=== PATIENT | female | born 1935 | race Caucasian/White ===

== ENCOUNTER 2020-12-29 07:29 | Outpatient (RCR) | payer MEDICARE, SELFPAY ==
[2020-10-19 09:00] VITALS: BMI 59.6
--- NOTE | 2020-10-25 16:27 | WPDWOUNDNOTE ---
Wound Care Note Date/Time: 10/25/20 16:27 History: patient is an 85-year-old woman who 3 weeks ago was bitten by a dog in the right lower leg. She went to the emergency room at [place] where this was sutured closed. She came to the wound clinic and appeared to have an infection. The sutures were removed and a large open wound resulted. She does take Plavix and aspirin as she has had some TIAs in the past. She is seen now in the wound clinic for chronic wound care of her right lower leg wound. She is not having really much pain with the wound. She is able to ambulate at home. She does drive a car. Previously she was bathing in a bath tub but has not been since developing this wound. Wound history: As above, result of a dog bite and patient on anti-platelet therapy. Wound has not been healing well. Wound approximation: No Wound width: 3 cm Wound length: 6 cm, proximally based flap Wound depth: 1.5 cm Drainage: serosanguineous Surrounding tissue appearance: edematous with some bruising and thin skin Tunneling: only tunneling is that a flap-like nature of the wound Percentage granulation tissue: 10-15% Treatment/Procedures: excisional debridement of small amounts of skin and subcutaneous. There was a little bit of bleeding associated with this debridement but minimal discomfort. Wound was dressed with silver gel and Nu Gauze packing. Gauze rolls and Tubigrip placed. Dressings: Patient to leave dressing dry and intact until we see her again on morning. Assessment and Plan Assessment and plan (1) Open wound of right lower leg due to dog bite: Code(s): S81.851A - Open bite, right lower leg, initial encounter; W54.0XXA - Bitten by dog, initial encounter Status: Chronic Assessment and Plan: a lot of slough and devascularized tissue in the wound. Will recheck on to see the affect of the minor debridement. Consider either continuing silver gel or possibly going to wound VAC therapy. (2) Antiplatelet or antithrombotic long-term use: Code(s): Z79.02 - half-way (current) use of antithrombotics/antiplatelets Status: Chronic Assessment and Plan: Continue aspirin and Plavix for thromboembolic prevention. Review of Systems Review of Systems: All systems reviewed & are unremarkable except as noted in HPI and below ( Wound care note) Constitutional: Constitutional: Denies chills and Denies fever(s) Exam Const: General: cooperative, healthy appearing, comfortable, no acute distress, alert and awake Nutritional Appearance: average body habitus Orientation/consciousness: patient oriented x3 Extrem: Right lower extremity: lower leg ( flap-like wound described in wound note) Details: non-pitting edema, laceration and ecchymosis; no erythema and no unusual warmth
--- NOTE | 2020-10-27 17:44 | P.PNWOUND_ITS ---
Wound Care Note Date/Time: 10/27/20 17:44 History: Dog bite with a proximally based flap, right lower leg. patient takes Plavix. Wound history: Patient seen in wound clinic 2 days ago and some debridement performed. Wound was packed with Nu Gauze and she is seen again in the wound clinic today. No new complaints or problems. Wound approximation: No Wound width: 3 cm Wound length: 4.5 cm Wound depth: 1.3 cm Drainage: serosanguineous Surrounding tissue appearance: dry, much improved. Healthy. Edema is better. Tunneling: Some at upper outer aspect of wound Percentage granulation tissue: 50%. Was maybe 10% just 2 days ago. Treatment/Procedures: No procedures. Dressings: Silver gel and packing reapplied. Continue Tubigrip. Patient will have application for wound back and hopefully place this on Saturday. I will recheck her again in 3 weeks unless problems develop in the meantime. Assessment and Plan Assessment and plan (1) Open wound of right lower leg due to dog bite: Code(s): S81.851A - Open bite, right lower leg, initial encounter; W54.0XXA - Bitten by dog, initial encounter Status: Chronic Assessment and Plan: much improved from just 2 days ago with limited debridement done then. Wound treated with Silver Gel and packing. She will packed the wound once over the and then follow up again Saturday. Hopefully wound VAC will be approved in can be applied on Saturday. After that she will be seen in the wound clinic twice a week for VAC changes. I will see her in 3 weeks unless problems develop. (2) Antiplatelet or antithrombotic long-term use: Code(s): Z79.02 - supervisor intermediates (current) use of antithrombotics/antiplatelets Status: Chronic Assessment and Plan: Continue on Plavix anti-platelet therapy. Review of Systems Review of Systems: All systems reviewed & are unremarkable except as noted in HPI and below ( Wound care note) Constitutional: Constitutional: Denies chills, Denies fever(s), Denies lethargy and Denies poor appetite Hematologic/Lymphatic: Hematologic/Lymphatic: Reports easy bleeding, Reports easy bruising and Reports other ( takes Plavix anti-platelet therapy) Exam Extrem: Right lower extremity: lower leg ( proximally based flap right lower leg, much graffiti cleaner, less slough) Details: tenderness, non-pitting edema ( less then 2 days ago.) and ecchymosis ( Improving); no erythema
--- NOTE | 2020-11-14 13:31 | WPDWOUNDNOTE ---
Wound Care Note Date/Time: 11/14/20 13:31 Patient is an 85-year-old woman who suffered a dog bite of the right lower leg. She takes Plavix. She is using silver gel dressing changes and Tubigrip to minimize edema. She reports the wound seems to be getting smaller. No new complaints or problems. Assessment and Plan Assessment and plan (1) Open wound of right lower leg due to dog bite: Code(s): S81.851A - Open bite, right lower leg, initial encounter; W54.0XXA - Bitten by dog, initial encounter Status: Chronic Assessment and Plan: Continues to heal well. Continue silver gel with daily gauze dressing. Continue Tubigrip. Recommended leg elevation to minimize chronic edema. Recheck again in wound clinic in 2 weeks. Review of Systems Review of Systems: All systems reviewed & are unremarkable except as noted in HPI and below Constitutional: Constitutional: Denies body ache(s), Denies chills, Denies fever(s), Denies headache(s) and Denies poor appetite Neurologic: Denies confusion and Denies headache(s) Exam Extrem: General: edema bilateral ( Mild bilateral edema lower extremities.) Right lower extremity: lower leg Details: tenderness, non-pitting edema Details: 1+ and other ( Wound is beefy red very superficial with minimal tracking towards posterior.); no erythema, no pitting edema and no unusual warmth
--- NOTE | 2020-11-30 16:53 | P.PNWOUND_ITS ---
Wound Care Note Date/Time: 11/28/20 11:53 History: Dog bite right lower leg Wound history: initially on wound VAC After wound debrided 10/25/2020 in the wound clinic. Wound VAC was discontinued and silver gel with Tubigrip was started in early November. Wound approximation: No Wound width: 1.2 cm Wound length: 2.2 cm Wound depth: 0.2 cm Drainage: serosanguineous, pink Surrounding tissue appearance: healthy Tunneling: undermining has collapsed and filling in Percentage granulation tissue: 100 Treatment/Procedures: none Dressings: continue silver gel dressings daily with Tubigrip to help control lower extremity edema. Recheck patient in 3 weeks. Assessment and Plan Assessment and plan (1) Open wound of right lower leg due to dog bite: Code(s): S81.851A - Open bite, right lower leg, initial encounter; W54.0XXA - Bitten by dog, initial encounter Status: Chronic Assessment and Plan: Continue silver gel and Tubigrip daily. Recheck in 3 weeks in the wound clin ic. Hopefully will be healed by then. (2) Antiplatelet or antithrombotic long-term use: Code(s): Z79.02 - USP (current) use of antithrombotics/antiplatelets Status: Chronic Review of Systems Review of Systems: All systems reviewed & are unremarkable except as noted in HPI and below ( Wound care note) Exam Extrem: Right lower extremity: edema Details: non-pitting ( trace) and lower leg ( much smaller, clean granulating beefy red wound.)
--- NOTE | 2020-12-22 15:21 | WPDWOUNDNOTE ---
Wound Care Note Date/Time: 12/22/20 15:21 no new complaints. Right leg wound getting smaller. She has been using silver gel. Just a small area remains. Assessment and Plan Assessment and plan (1) Open wound of right lower leg due to dog bite: Code(s): S81.851A - Open bite, right lower leg, initial encounter; W54.0XXA - Bitten by dog, initial encounter Status: Chronic Assessment and Plan: Almost completely healed. Treated with silver nitrate cautery today. Mepilex applied. Patient will leave this in place for the next 3 days and then cover with a Band-Aid or gauze. She will follow up in the Wound Clinic in 1 week. If has not healed by then I will see her again in a couple of weeks. Probably this will go on to heal without further issues. Review of Systems Review of Systems: All systems reviewed & are unremarkable except as noted in HPI and below Constitutional: Constitutional: Denies chills and Denies fever(s) Exam Extrem: Right lower extremity: lower leg ( Small open area remains with hypertrophic granulation tissue, about 6 mm) Details: no edema and other ( treated hypertrophic granulation tissue with silver nitrate.); no erythema, no crepitus and no unusual warmth
== END 2021-01-17 23:59 | disposition home or self-care (01) ==
LOC: ANHWOC 07:29
PROVIDERS: PCP Family Medicine; Visit Provider Surgery
DX: S81.851D Open bite, right lower leg, subsequent encounter (principal); W54.0XXD Bitten by dog, subsequent encounter
CPT/HCPCS: 11042; 97605; 99212; 99213; G0463

== ENCOUNTER 2022-06-26 09:41 | Outpatient (CLI) | payer MEDICARE, SELFPAY ==
[2022-06-26 20:22] LABS: Alanine Aminotransferase 23 U/L (6-35); Albumin Level 4.1 g/dL (3.5-5.1); Alkaline Phosphatase 74 U/L (38-126); Anion Gap 4 mmol/L (8-16); Aspartate Amino Transferase 47 U/L (14-36); Bilirubin,Total 0.3 mg/dL (0.2-1.3); Blood Urea Nitrogen 17 mg/dL (7-17); Calcium 8.9 mg/dL (8.4-10.2); Carbon Dioxide 32 mmol/L (22-30); Chloride 101 mmol/L (98-107); Estimated Glomerular Filt Rate > 60; Glucose 92 mg/dL (65-110); Potassium 4.1 mmol/L (3.4-5.0); Sodium 137 mmol/L (137-145)
[2022-06-28 11:25] LABS: Hemoglobin A1C 5.6 % (<5.7)
== END 2022-06-26 09:42 | disposition home or self-care (01) ==
LOC: ANHGOSHLAB 09:45
PROVIDERS: PCP Family Medicine; Visit Provider Family Medicine
DX: R73.03 Prediabetes (principal); I10 Essential (primary) hypertension
CPT/HCPCS: 36415; 80053; 83036

== ENCOUNTER 2022-12-17 08:04 | Outpatient (CLI) | payer MEDICARE, SELFPAY ==
[2022-12-17 12:45] LABS: Basophils Percent Auto 0.3 % (0.2-1.2); Eosinophils Absolute Auto 0.1 K/mm3 (0-0.3); Eosinophils Percent Auto 0.4 % (0-4.4); Hematocrit 40.3 % (37.0-47.0); Hemoglobin 13.3 g/dL (12.0-15.0); Immature Granulocyte Absolute 0.04 K/mm3 (0.00-0.031); Immature Granulocyte Percent A 0.4 % (0-0.5); Lymphocytes Absolute Auto 1.95 K/mm3 (0.9-3.2); Lymphocytes Percent Auto 17.3 % (18.3-44.2); Mean Corpuscular Hemoglobin 28.7 pg (26-34); Mean Platelet Volume 10.2 fl (7.4-10.4); Neutrophils Absolute Auto 8.2 K/mm3 (1.3-6.7); Neutrophils Percent Auto 72.6 % (45.5-73.1); Platelet Count Result 238 k/mm3 (150-375); Red Blood Count 4.63 M/mm3 (4.2-5.4); Red Cell Distribution Width 16.7 % (11.5-14.5); White Blood Count 11.3 K/mm3 (4.5-10.0)
[2022-12-17 12:47] LABS: Hemoglobin A1C 5.6 % (<5.7)
[2022-12-17 12:53] LABS: Alanine Aminotransferase 27 U/L (6-35); Albumin Level 4.5 g/dL (3.5-5.1); Alkaline Phosphatase 71 U/L (38-126); Anion Gap 4 mmol/L (8-16); Aspartate Amino Transferase 46 U/L (14-36); Bilirubin,Total 0.3 mg/dL (0.2-1.3); Blood Urea Nitrogen 14 mg/dL (7-17); Calcium 9.3 mg/dL (8.4-10.2); Carbon Dioxide 28 mmol/L (22-30); Chloride 96 mmol/L (98-107); Cholesterol 203 mg/dL (0-200); Estimated Glomerular Filt Rate > 60; Glucose 106 mg/dL (65-110); Potassium 3.9 mmol/L (3.4-5.0); Sodium 128 mmol/L (137-145); Triglycerides 86 mg/dL (<150)
[2022-12-17 13:00] LABS: LDL Cholesterol Direct 65 mg/dL
[2022-12-17 13:03] LABS: HDL Direct 111 mg/dL
[2022-12-17 13:26] LABS: Vitamin D 25 Hydroxy 49.5 ng/mL
[2022-12-17 15:05] LABS: Free T4 Free Thyroxine Reflex 0.86 ng/dL (0.78-2.19)
[2022-12-17 15:58] LABS: Total Triiodothyronine (T3) 1.24 NG/ML (0.97-1.69)
== END 2022-12-17 08:05 | disposition home or self-care (01) ==
LOC: ANHGOSHLAB 08:05
PROVIDERS: PCP Family Medicine; Visit Provider Family Medicine
DX: E78.5 Hyperlipidemia, unspecified (principal); Z86.73 Personal history of transient ischemic attack (TIA), and cerebral infarction without residual deficits; F41.9 Anxiety disorder, unspecified; Z13.29 Encounter for screening for other suspected endocrine disorder; R73.03 Prediabetes; E53.8 Deficiency of other specified B group vitamins; I10 Essential (primary) hypertension; E55.9 Vitamin D deficiency, unspecified
CPT/HCPCS: 36415; 80053; 80061; 82306; 82607; 83036; 84439; 84443; 84480; 85025

== ENCOUNTER 2023-01-10 08:26 | Outpatient (CLI) | payer MEDICARE, SELFPAY ==
[2023-01-10 13:07] LABS: Basophils Percent Auto 0.3 % (0.2-1.2); Eosinophils Absolute Auto 0.1 K/mm3 (0-0.3); Eosinophils Percent Auto 1.1 % (0-4.4); Hematocrit 39.2 % (37.0-47.0); Hemoglobin 12.6 g/dL (12.0-15.0); Immature Granulocyte Absolute 0.04 K/mm3 (0.00-0.031); Immature Granulocyte Percent A 0.4 % (0-0.5); Lymphocytes Absolute Auto 2.48 K/mm3 (0.9-3.2); Lymphocytes Percent Auto 25.1 % (18.3-44.2); Mean Corpuscular HGB Conc 32.1 g/dl (32-36); Mean Corpuscular Volume 90.1 fl (80-100); Monocytes Absolute Auto 0.9 K/mm3 (0.1-0.6); Monocytes Percent Auto 8.6 % (2.6-8.5); Neutrophils Absolute Auto 6.4 K/mm3 (1.3-6.7); Neutrophils Percent Auto 64.5 % (45.5-73.1); Platelet Count Result 252 k/mm3 (150-375); Red Blood Count 4.35 M/mm3 (4.2-5.4); Red Cell Distribution Width 16.1 % (11.5-14.5); White Blood Count 9.9 K/mm3 (4.5-10.0)
[2023-01-10 13:28] LABS: Alanine Aminotransferase 25 U/L (6-35); Albumin Level 4.5 g/dL (3.5-5.1); Alkaline Phosphatase 73 U/L (38-126); Anion Gap 6 mmol/L (8-16); Aspartate Amino Transferase 37 U/L (14-36); Bilirubin,Total 0.4 mg/dL (0.2-1.3); Blood Urea Nitrogen 16 mg/dL (7-17); Calcium 9.5 mg/dL (8.4-10.2); Carbon Dioxide 30 mmol/L (22-30); Chloride 98 mmol/L (98-107); Estimated Glomerular Filt Rate > 60; Glucose 93 mg/dL (65-110); Potassium 4.1 mmol/L (3.4-5.0); Sodium 134 mmol/L (137-145)
[2023-01-10 23:48] LABS: Free T4 Free Thyroxine Reflex 0.96 ng/dL (0.78-2.19)
[2023-01-11 01:32] LABS: Total Triiodothyronine (T3) 1.15 NG/ML (0.97-1.69)
== END 2023-01-10 08:27 | disposition home or self-care (01) ==
LOC: ANHGOSHLAB 08:29
PROVIDERS: PCP Family Medicine; Visit Provider Family Medicine
DX: D72.829 Elevated white blood cell count, unspecified (principal); E87.1 Hypo-osmolality and hyponatremia; I10 Essential (primary) hypertension; R79.89 Other specified abnormal findings of blood chemistry
CPT/HCPCS: 36415; 80053; 84439; 84443; 84480; 85025

== ENCOUNTER 2023-02-05 08:49 | Outpatient (CLI) | payer MEDICARE, SELFPAY ==
--- NOTE | 2023-02-05 08:57 | ECG_ITS ---
Measurements Intervals [place] Rate: 67 P: 38 [place]: 168 QRS: -26 QRSD: 79 T: 50 QT: 398 QTc: 422 Interpretive Statements SINUS RHYTHM WITH SINUS ARRHYTHMIA PREVIOUS ANTERIOR WALL WV BORDERLINE LEFTWARD AXIS ABNORMAL ECG NO PREVIOUS ECG AVAILABLE FOR COMPARISON Electronically Signed On 02-05-2023 12:14:03 CDT by Shyam Young M.D.
== END 2023-02-05 08:50 | disposition home or self-care (01) ==
LOC: ANHSURGERY 08:55
PROVIDERS: PCP Family Medicine; Visit Provider Surgery
DX: I10 Essential (primary) hypertension (principal); Z01.818 Encounter for other preprocedural examination
CPT/HCPCS: 93005

== ENCOUNTER 2023-02-14 15:57 | Observation (INO) | payer MEDICARE, SELFPAY ==
[2023-01-31 15:47] VITALS: BMI 23.7
--- NOTE | 2023-01-31 16:16 | PC.NURSE ---
Addendum entered by Rebecca Bobo RN 01/31/23 16:40: PHONED PATIENT'S SON, SCOT. ALL THE PRE-OP INSTRUCTIONS WERE REVIEWED. HE RELAYED UNDERSTANDING AND WILL CALL WITH QUESTIONS. Original Note: Report to the Outpatient Waiting Room, entrance under the green pavilion located off [facility], at time __7:00AM on date __02/13/23 . Planned Procedure Time: __9:00AM . Time changes happen often and if your time is changed the preop area will call you the afternoon before. - You and your visitor will be asked to self-screen and do not enter if you have any COVID symptoms. - A mask is optional within the hospital at this time. CLEAR LIQUIDS ONLY ON THE DAY BEFORE SURGERY-02/12/23. Patients may have clear liquids (water, carbonated beverages, clear teas, apple juice) until 3 hours prior to surgery with a maximum of 20 ounces. Take the following medications with a SIP of water the morning of surgery: __LORAZEPAM, METOPROLOL, MORNING EYE DROPS DO NOT STOP ANY OF YOUR OTHER PRESCRIPTION MEDICATIONS PRIOR TO SURGERY ?EXCEPT THE FOLLOWING Medications to discontinue per physician ___HOLD ALL VITAMINS/SUPPLEMENTS 3 DAYS PRE-OP Date to take last dose___02/09/23 Please no make-up, nail nigerian, hairspray, perfume, deodorant, or body powder the day of surgery. No jewelry (including any body piercings) or valuables the day of surgery, leave them at home. Please take a shower or bath the night before, or the morning of, surgery with an antibacterial soap. Wear comfortable, loose fitting clothing. Children are encouraged to wear pajamas. - Jewelry must be removed prior to entering the operating room. Rings and piercings that are not removed may be cut off. - The hospital will not accept responsibility for valuables. - Please leave all valuables, including medications, at home the day of surgery. If you are going home after surgery, a licensed shuttle van driver must drive you home. - NO public transportation without another adult if you receive anesthesia. - We recommend that an adult stay with you for 24 hours following discharge. - We also recommend that you do not drive, make important decision, drink alcoholic beverages, or take any drugs that were not prescribed by your health care provider for at least 24 hours after your discharge time. Follow any additional instructions given to you from your surgeon. 1.DULCOLAX 5MG TAB TAKE 2 TABLETS FOR 2 NIGHTS PRIOR TO SURGERY 2. USE FLEETS ENEMA AT BEDTIME THE NIGHT BEFORE SURGERY AND THE MORNING OF SURGERY BEFORE COMING TO THE HOSPITAL. If you or anyone in your household have experienced Covid symptoms in the past week, please notify your surgeon or the nurse liaison at the phone number below for possible testing. Telephone instructions given to _PATIENT and asked if any additional questions and then verbalized understanding. Patient advised to call surgeon office or pre surgery nurse liaison [phone] if any additional questions.
--- NOTE | 2023-02-12 12:15 | PM.IMHP ---
H&P: HPI History of Present Illness Date/Time: 02/12/23 12:15 Chief Complaint: Protruding hemorrhoids Narrative: Patient is an 87-year-old woman whom I know from treatment of a chronic lower leg wound from a dog bite that occurred in October of 2020. This eventually healed. She takes Plavix as she has a history of TIAs. She had been having rectal bleeding. Her Plavix had to be stopped. The bleeding stopped but she still notices prominent hemorrhoids which she had been treating with a suppository. The hemorrhoids seemed to make it difficult to insert the suppository. She was seen in the office and found to have stage IV internal and external hemorrhoids in the left lateral position. After discussion, she is taken to surgery now for hemorrhoidectomy. She has been taking psyllium 1 tbsp twice a day and mineral oil 1 tbsp twice a day as well as docusate. Review of Systems Review of Systems: All systems reviewed & are unremarkable except as noted in HPI and below (HPI and those items noted below) Constitutional: Constitutional: Denies chills and Denies fever(s) Cardiovascular: Cardiovascular: Denies chest pain, Denies diaphoresis, Denies dyspnea and Denies paroxysmal nocturnal dyspnea Respiratory: Respiratory: Denies chest congestion, Denies cough and Denies dyspnea Integumentary/Breasts: Skin/Breast: Denies lesions and Denies rash PMFSH Past Medical History Medical History Acne rosacea Anxiety Arthritis of left knee Dyslipidemia Environmental allergies Essential (primary) hypertension History of COVID-19 (~11/2021) History of TIA (transient ischemic attack) History of vaginal delivery 1956 1957 1959 1962 1965 History of varicose veins Open wound of left lower leg due to dog bite (~09/2020) Osteoarthritis Pes anserinus bursitis of left knee Prediabetes Skin problem Transient ischemic attack (TIA) 3 TIA's Trigger finger, unspecified middle finger Both left and right Vitamin D deficiency Surgical History Surgical History H/O ligation of vein 1965 History of cataract surgery Removal right & left eye - 2006 History of hand surgery Left Dr. De La Torre Resection Arthroplasty w/ Tendon graft suspension left 1st carpal/metacarpal joint 2004 History of hysterectomy & Bladder repair 1973 History of TIAs 12/2014 History of tonsillectomy 194 Hx of decompressive lumbar laminectomy 2008 Trigger thumb, left thumb Release 2004 Family History Family History Mother Diabetes mellitus Hypertension Cancer Father Arthritis Heart disease Social History Social History Years smoked: 1 Smoking status: Never smoker Alcohol intake: former Drinks per week: 14 Alcohol use details: Quit 04-18-2019 Substance use: never Substance use type: does not use Lack of Transportation: No Lack of Food: Never True Current Housing: I Have Housing Concerned About Future Housing: No Difficulty Paying Gas/Electric Bills: No Difficulty Paying for Meds: No Currently Unemployed: No Education: Master's Degree or Higher Difficulty w/ Childcare or Family Care: No Living arrangements: alone Occupation/Education: retired Gender identity (if verbalized by the patient): Female Sexual Orientation (if Verbalized by the Patient): Straight or Heterosexual Spiritual care concerns: No Meds Home Medications and Allergies Home Medications Medication Instructions Recorded Confirmed Type carboxymethylcellulose 0.5 1 drop ophthalmic (eye) Q4-5H PRN 07/01/19 01/31/23 History %-glycerin 0.9 % (PF) eye Dry Eyes drops,dropperette (Refresh Optive Sensitive (PF)) docusate sodium 50 mg capsule 50 mg PO HS 07/01/19 01/31/23 History tafluprost (PF) 0.0015 % eye drops 1 drop LEFT EYE QAM 01
[2023-02-13] VITALS (12 sets, daily range): BP systolic 151–189; BP diastolic 55–92; PULSE 63–96; RESP 12–20; TEMP 36.1–37.1; O2SAT 97–100
--- NOTE | 2023-02-13 08:11 | WPDHPUPDATE1 ---
History and Physical Update Update Date/Time: 02/13/23 08:11 History and Physical has been reviewed, including an updated exam of the patient. There are NO changes in the patient's condition. Risks, benefits, and alternatives have been discussed and questions answered. Patient agrees to proceed with procedure.
--- NOTE | 2023-02-13 08:29 | WPDANESEPPF ---
Anes - Initial Pre Proc Eval Procedure: Operation Date: 02/13/23 09:00 Proposed Procedures p Hemorrhoidectomy, with Proctosigmoidoscopy - [place] MD Date/Time: 02/13/23 08:29 Surgeon: [place] MD Pre Op Diagnosis: internal and external bleeding hemorrhoids Patient Data Age: 87 Gender: F Height: 1.55 m Weight: 57 kg Allergies Allergy/AdvReac Type Severity Reaction Status Date / Time epinephrine AdvReac Mild Itching Verified 02/13/23 07:55 Home Medications Medication Instructions Recorded Confirmed Type carboxymethylcellulose 0.5 1 drop ophthalmic (eye) Q4-5H PRN 07/01/19 02/13/23 History %-glycerin 0.9 % (PF) eye Dry Eyes drops,dropperette (Refresh Optive Sensitive (PF)) docusate sodium 50 mg capsule 50 mg PO HS 07/01/19 02/13/23 History tafluprost (PF) 0.0015 % eye drops 1 drop LEFT EYE QAM 07/01/19 02/13/23 History in a dropperette (Zioptan (PF)) multivitamin (Daily Multi-Vitamin 1 tablet PO DAILY 10/06/20 02/13/23 History tablet) psyllium husk 3.4 gram/5.4 gram 2 tbsp PO BID 07/05/22 02/13/23 History oral powder (Metamucil) atorvastatin 20 mg tablet (Lipitor) 20 mg PO QHS #90 tabs 10/08/22 02/13/23 Rx loratadine 10 mg tablet (Claritin) 10 mg PO DAILY 01/23/23 02/13/23 History amlodipine 5 mg tablet 5 mg PO HS 01/31/23 02/13/23 History aspirin 325 mg tablet,delayed 325 mg PO HS 01/31/23 02/13/23 History release doxycycline hyclate 50 mg capsule 50 mg PO QAM 01/31/23 02/13/23 History fluticasone propionate 50 1 spray intranasal HS PRN allergy 01/31/23 02/13/23 History mcg/actuation nasal symptoms spray,suspension (Flonase Allergy Relief) lorazepam 0.5 mg tablet 0.5 mg PO BID anxiety 01/31/23 02/13/23 History losartan 100 mg tablet 100 mg PO QAM 01/31/23 02/13/23 History metoprolol succinate 25 mg 25 mg PO QAM 01/31/23 02/13/23 History tablet,extended release 24 hr mineral oil 30 ml PO BID 01/31/23 02/13/23 History hydrocortisone acetate 25 mg 25 mg RECTAL QHS #12 ea 02/06/23 02/13/23 Rx rectal suppository (Anusol-HC) Patient hx anesthesia problems: none Family hx anesthesia problems: none Results Review: All pre-operative results and documents have been reviewed as part of the pre-operative evaluation. [facility] Past Medical History Medical History Acne rosacea Anxiety Arthritis of left knee Dyslipidemia Environmental allergies Essential (primary) hypertension History of COVID-19 (~11/2021) History of TIA (transient ischemic attack) History of vaginal delivery 1956 1957 1959 1962 1965 History of varicose veins Open wound of left lower leg due to dog bite (~09/2020) Osteoarthritis Pes anserinus bursitis of left knee Prediabetes Skin problem Transient ischemic attack (TIA) 3 TIA's Trigger finger, unspecified middle finger Both left and right Vitamin D deficiency Surgical History Surgical History H/O ligation of vein 1965 History of cataract surgery Removal right & left eye - 2006 History of hand surgery Left Dr. De La Torre Resection Arthroplasty w/ Tendon graft suspension left 1st carpal/metacarpal joint 2004 History of hysterectomy & Bladder repair 1973 History of TIAs 12/2014 History of tonsillectomy 194 Hx of decompressive lumbar laminectomy 2009 Trigger thumb, left thumb Release 2004 Family History Family History Mother Diabetes mellitus Hypertension Cancer Father Arthritis Heart disease Social History Social History Years smoked: 1 Smoking status: Never smoker Alcohol intake: former Drinks per week: 14 Alcohol use details: Quit 04-18-2019 Substance use: never Substance use type: does not use Lack of Transportation: No Lack of Food: Never True Current Ho
[2023-02-13] MEDS: ACETAMINOPHEN 500 MG TABLET 1000 MG PO (08:30)
[2023-02-13] MEDS: KETOROLAC 15 MG/ML VIAL (*BKC) IV PUSH (08:35)
[2023-02-13] MEDS: LACTATED RINGERS 1,000 ML 30 ML IV CONT (08:35)
[2023-02-13] MEDS: ceFAZolin 2 GM/D5W 50 ML 2 GM/50 ML BAG IVPB (08:43)
[2023-02-13] MEDS: BUPIVACAINE/EPINEPHRINE 0.5% 50 ML VIAL 30 ML INFILTRATE (09:04)
--- NOTE | 2023-02-13 09:08 | PHAR ---
JOSE ANGEL ORKRISTY. PATIENT LISTS ALLERGY TO EPINEPHRINE (MILD, ITCHING), BUPIVACAINE/EPI ORDERED. KRISTY TALKED TO PHYSICIAN & OK'D BUP/EPI USE.
--- NOTE | 2023-02-13 10:22 | P.OP_ITS ---
Procedure Note - Detailed Date of Procedure 02/13/23 Pre-op Diagnosis internal and external bleeding, prolapsed hemorrhoids Post-op Diagnosis Same Procedure Performed Proctosigmoidoscopy to 16 cm, excision left lateral complex internal and external hemorrhoids Surgeon [place] MD Fire Alarm Operator Lela Reid [facility] Anesthesia General and Local (0.5% Marcaine with epinephrine) Indications Patient is an 87-year-old woman who was having rectal bleeding and noticed protruding anal tissue. She stopped her Plavix and the noticeable bleeding stopped. However at her office exam, the stool was blood tinged. Her exam showed prolapsed internal and external hemorrhoids at the left lateral position. She is taken to surgery now for excision of this complex and possibly rubber- band ligation of any other internal hemorrhoids. Proctosigmoidoscopy will be done to assess for other rectal sources of bleeding. Findings Proctosigmoidoscopy to 16 cm was negative for polyps or other sources of bleeding. The only hemorrhoids the patient had were the left lateral complex. Description of Procedure Patient was taken to surgery and induced into general anesthesia. She was then turned and placed in prone hannah-knife position. The buttocks were taped apart. Prep and drape was carried out. A small Hill-Mullins anoscope was used to examine the anal canal and distal rectum. The only findings were the left lateral internal and external hemorrhoids noted above. Local anesthesia was infiltrated. 20 cc was infiltrated deep subdermal. 20 cc was infiltrated intra sphincteric. Rigid proctosigmoidoscope was then brought into the field. Proctosigmoidoscopy was done to 16 cm. This was as far as I could navigate as the patient had a severe angulation at the level of the sacral promontory. The scope was removed. Small Hill-Mullins was used again. The left lateral complex was excised. The wound was closed with running suture of 3-0 chromic. I then looked again for any residual internal hemorrhoids and saw none. We then dressed the rectum with Xeroform gauze fluffs and Medipore tape. Patient was then returned to a supine position, awakened and taken to recovery in good c ondition. Sponge and needle counts were correct x2. Estimated Blood Loss -5 Drains No Packing No Pathology Yes (Left lateral internal and external hemorrhoidal complex) Complications No immediate complications Condition Stable Disposition PACU [facility] Billing Surgery - Charge Forward: Surgery Billing (Proctosigmoidoscopy, excision single column internal and external hemorrhoids)
--- NOTE | 2023-02-13 11:40 | PC.NURSE ---
Patient arrived at 1055 to room 317 bed 1
[2023-02-13] MEDS: LORazepam (*CRX) 0.5 MG TABLET PO (16:20)
[2023-02-13] MEDS: PSYLLIUM POWDER PACKET 1 PACKET PO (16:20)
[2023-02-13] MEDS: MINERAL OIL 30 ML UDC 15 ML PO (16:20)
[2023-02-13] MEDS: DOCUSATE SODIUM LIQ 100 MG/10 ML UDC 50 MG PO (20:31)
[2023-02-13] MEDS: amLODIPine BESYLATE 5 MG TABLET PO (20:32)
[2023-02-13] MEDS: ATORVASTATIN 20 MG TABLET PO (20:33)
[2023-02-13] MEDS: ASPIRIN 325 MG ENTERIC TABLET PO (20:33)
[2023-02-13] MEDS: HYDROmorphone HCL INJ (*CRX) 1 MG/ML SYR IV PUSH (22:56)
[2023-02-14] VITALS (8 sets, daily range): BP systolic 134–187; BP diastolic 54–70; PULSE 63–72; RESP 12–18; TEMP 36.1–36.7; O2SAT 97–100
[2023-02-14] MEDS: HYDROmorphone HCL INJ (*CRX) 1 MG/ML SYR IV PUSH ×2 (03:04→09:30)
[2023-02-14] MEDS: LORazepam (*CRX) 0.5 MG TABLET PO ×2 (09:09→17:18)
[2023-02-14] MEDS: DOXYCYCLINE HYCLATE 50 MG CAPSULE PO (09:09)
[2023-02-14] MEDS: METOPROLOL SUCCINATE EXT REL 25 MG TABCR PO (09:09)
[2023-02-14] MEDS: MULTIVITAMINS THERAPEUTIC TAB (*BKC) 1 TABLET PO (09:09)
[2023-02-14] MEDS: LORATADINE 10 MG TABLET PO (09:09)
[2023-02-14] MEDS: LOSARTAN POTASSIUM 100 MG TABLET PO (09:09)
[2023-02-14] MEDS: PSYLLIUM POWDER PACKET 1 PACKET PO (09:14)
--- NOTE | 2023-02-14 12:54 | WPDANESPN ---
Anes - Prog Note Post-Op Date/Time: 02/14/23 12:54 Cardiovascular status: other (HTN) Respiratory status: normal Airway patency: baseline Mental status: baseline Post-Op hydration status: normal Vital Signs: Last Vital Signs Temp 36.1 C L 02/14/23 11:57 Pulse 71 02/14/23 11:57 Resp 17 02/14/23 11:57 BP 155/66 H 02/14/23 11:57 Pulse Ox 99 02/14/23 11:57 O2 Del Method Room Air 02/14/23 08:00 O2 Flow Rate 6 02/13/23 09:40 Pain Score (VAS): 0/10 I/O: Intake & Output 02/13/23 02/14/23 02/14/23 23:59 07:59 15:59 Intake Total 222 150 480 Output Total 150 Balance 222 150 330 Post-procedural complaints: none Patient Feedback: Patient satisfied with anesthetic care.
--- NOTE | 2023-02-14 14:33 | PM.PNGS ---
Progress Note: A&P Assessment and Plan (1) Internal and external bleeding hemorrhoids: Code(s): K64.4 - Residual hemorrhoidal skin tags; K64.8 - Other hemorrhoids Status: Chronic Assessment and Plan: Patient doing well postop day 1. She had some confusion after having the IV analgesics and is feeling a little weak. Will stop the IV Dilaudid and instructed her to take Tylenol for her mild post-operative pain. Will get her up and ambulating in the halls. Continue metamucil, mineral oil, and Sitz baths BID. Hopefully we can discharge her home tomorrow if she continues to improve. Plan I have discussed the patient's case and plan of care with Dr. Beach. Subjective Subjective Date/Time Seen: 02/14/23 14:33 Post Op day: 1 Patient reports: flatus and no bowel movement Interval history: Patient states she has felt confused today and out of sorts. She has ambulated to the bathroom a few times and is also feeling unsteady with generalized weakness. She has not yet been ambulating in the halls. She is having some mild rectal discomfort as expected from surgery. She also complains of right-sided sciatic pain, which is reportedly chronic. She has been given Dilaudid IV for this overnight and this morning. She reports not sleeping well last night either. No other complaints at this time. Her son and [id number] are at the bedside. She lives at home alone, but they are willing to stay with her if needed. Review of Systems Constitutional: Constitutional: Reports no additional constitutional complaints and Reports weakness Cardiovascular: Cardiovascular: Reports no additional cardiovascular complaints and Denies chest pain Respiratory: Respiratory: Reports no additional respiratory complaints and Denies dyspnea Gastrointestinal: Gastrointestinal: Reports as per HPI and Reports no additional gastrointestinal complaints Exam Const: General: comfortable and no acute distress Orientation/consciousness: patient oriented x3 GI: Inspection: non-distended GI Palp: Yes Soft to palpation and No Tenderness to palpation present (GI) Auscultation: normal bowel sounds Rectal Exam: other (incision dry and healing as expected, no bleeding or drainage) Objective Data Vital Signs Vital Signs: Vital Signs - 24 hr 02/13/23 16:00 02/13/23 20:18 02/14/23 00:18 Temperature 97.2 F L 97.1 F L 98.1 F Pulse Rate 83 73 70 Respiratory Rate 16 18 18 Blood Pressure 151/72 H 166/63 H 145/55 H Pulse Oximetry 99 100 99 Oxygen Delivery 02/14/23 04:18 02/14/23 07:46 02/14/23 08:00 Temperature 97.4 F L 97.0 F L Pulse Rate 63 67 Respiratory Rate 12 16 Blood Pressure 150/70 H 187/68 H Pulse Oximetry 100 99 Oxygen Delivery Room Air 02/14/23 09:09 02/14/23 11:57 Temperature 97.0 F L Pulse Rate 72 71 Respiratory Rate 17 Blood Pressure 155/66 H Pulse Oximetry 99 Oxygen Delivery Intake/Output Intake/Output: Intake & Output 02/11/23 02/12/23 02/13/23 02/14/23 23:59 23:59 23:59 23:59 Intake Total 372 630 Output Total 150 Balance 372 480 Meds/Results Medications: Active Medications Generic Name Dose Route Start Last Admin Trade Name Freq PRN Reason Stop Dose Admin Acetaminophen 500 mg 02/13/23 10:33 Acetaminophen 500 Mg Tablet PO Q6H PRN Mild Pain (1-3) or Fever Hydrocodone Bitart/Acetaminophen 1 tab 02/13/23 10:33 Hydrocodone/Acetaminophen (*Crx) 5-325 Mg Tablet PO Q4H PRN Pain Rated 4-6 Amlodipine Besylate 5 mg 02/13/23 21:00 02/13/23 20:32 Amlodipine Besylate 5 Mg Tablet PO 5 mg HS YUNG Administration Artificial Tears 1 drop 02/13/23 11:28 Artificial Tears Ophth Soln 15 Ml Bottle EACH EYE Q4H PRN Dry Eye(s) Aspirin 325 mg 02/13/23 21:00 02/13/23 20:33 Aspirin 325 Mg Enteric Tablet PO 325 mg HS YUNG Administration Atorvastatin Calcium 20 mg 02/13/23 21:00 02/13/23 20:33 Atorvastatin 20 Mg Tablet PO 20 mg Q
[2023-02-14] MEDS: amLODIPine BESYLATE 5 MG TABLET PO (20:16)
[2023-02-14] MEDS: ASPIRIN 325 MG ENTERIC TABLET PO (20:17)
[2023-02-14] MEDS: ATORVASTATIN 20 MG TABLET PO (20:17)
[2023-02-14] MEDS: DOCUSATE SODIUM LIQ 100 MG/10 ML UDC 50 MG PO (20:29)
[2023-02-14] MEDS: ACETAMINOPHEN 500 MG TABLET PO (20:30)
[2023-02-15] MEDS: HYDROcodone/acetaminophen (*CRX) 5-325 MG TABLET 1 TAB PO ×2 (04:16→08:00)
[2023-02-15 06:00] VITALS: BP 186/56; PULSE 84; RESP 16; TEMP 37; O2SAT 98
[2023-02-15 06:52] VITALS: BP 168/72
[2023-02-15] MEDS: LORazepam (*CRX) 0.5 MG TABLET PO (07:59)
[2023-02-15 08:00] VITALS: PULSE 86
[2023-02-15] MEDS: LOSARTAN POTASSIUM 100 MG TABLET PO (08:00)
[2023-02-15] MEDS: PSYLLIUM POWDER PACKET 1 PACKET PO (08:00)
[2023-02-15] MEDS: METOPROLOL SUCCINATE EXT REL 25 MG TABCR PO (08:00)
[2023-02-15] MEDS: MULTIVITAMINS THERAPEUTIC TAB (*BKC) 1 TABLET PO (08:00)
[2023-02-15] MEDS: MINERAL OIL 30 ML UDC 15 ML PO (08:00)
[2023-02-15] MEDS: LORATADINE 10 MG TABLET PO (08:00)
[2023-02-15] MEDS: DOXYCYCLINE HYCLATE 50 MG CAPSULE PO (08:00)
--- NOTE | 2023-02-15 09:17 | PM.DS ---
DS: Admitting Diagnosis Discharge Date 02/15/2023 Admitting Diagnosis Bleeding, prolapsed internal and external hemorrhoids Chronic constipation Glaucoma Osteoarthritis History of TIA Essential hypertension DS: Discharge Diagnosis Discharge Diagnosis (1) Internal and external bleeding hemorrhoids: Code(s): K64.4 - Residual hemorrhoidal skin tags; K64.8 - Other hemorrhoids Status: Chronic Assessment and Plan: Patient underwent proctosigmoidoscopy with excision of left lateral column of internal and external hemorrhoids on 02/13/[address] Beach (2) Constipation: Code(s): K59.00 - Constipation, unspecified Status: Chronic (3) Glaucoma: Code(s): H40.9 - Unspecified glaucoma Status: Chronic (4) Osteoarthritis: Qualifiers: Osteoarthritis location: unspecified site Osteoarthritis type: unspecified Qualified Code(s): M19.90 - Unspecified osteoarthritis, unspecified site Code(s): M19.90 - Unspecified osteoarthritis, unspecified site Status: Chronic (5) Essential (primary) hypertension: Code(s): I10 - Essential (primary) hypertension Status: Chronic (6) History of TIA (transient ischemic attack): Code(s): Z86.73 - Personal history of transient ischemic attack (TIA), and cerebral infarction without residual deficits Status: Chronic Assessment and Plan: Patient no longer takes Plavix. She takes aspirin daily. DS: Summary Hospital Course Hospital Course: Patient had home bowel preparation and was taken to surgery on the day of admission 02/13/2023. At surgery, she had proctosigmoidoscopy to 16 cm which was negative. The only pathologic hemorrhoids were stage IV internal and external hemorrhoids in the left lateral position. These were excised. Patient was observed overnight. The day after surgery she was somewhat confused and unsteady on her feet. She was kept another day. Her pain was controlled with oral analgesics. She is able to be discharged on postop day #2 in good condition. Status at Discharge Functional status at discharge: uses cane/walker Overall status at discharge: patient is progressing back to baseline Time Spent with Patient Time attestation: Total time spent providing and/or coordinating discharge services: Time spent: Less than 30 minutes Exam Const: General: comfortable, alert and awake Nutritional Appearance: thin Orientation/consciousness: No confusion GI: Rectal Exam: other (Small amount ecchymosis, no hematoma. Wound healing well.) DS: Data Data Completed and Pending Completed studies during hospitalization: Pending at discharge 02/13/23 09:09 Surgical [PTH] Routine Discharge Plan Discharge Attending physician on discharge: [place] Discharging Clinician: [place] Anticipated Discharge Date/Time: 02/15/23 09:23 Patient Disposition: Home, Self-Care Activity: may shower and as tolerated Diet: regular Wound Care Instructions: other - see discharge instructions Discharge Instructions: Discharge Instructions for Anorectal Surgery Dr. Beach 1. May discharge from Outpatient Surgery area or Surgical Floor when stable per protocol. 2. Activity: Remove dressing and start Sitz baths in a.m. following surgery. Once at home, all patients should take 10-20 minute Sitz baths at least 2 times per day and as needed after each bowel movement. Okay to bathe or shower after discharge. Okay to wash rectal area with soap. Rest around the house for the next 1-2 days, taking frequent walks. No driving for 2-3 days or while taking narcotic pain medications. 3. Diet: Regular diet with 6-8 glasses of water per day. Eat plenty of fruits and vegetables. 4. Medications: ? Resume all home medications. ? [place]
== END 2023-02-15 10:20 | disposition home or self-care (01) ==
LOC: ANHSURGERY 16:01 → ANH3MEDSUR 16:01
PROVIDERS: Admitting Provider Surgery; PCP Family Medicine; Visit Provider Surgery
PROC: (CPT 46255; principal; 2023-02-13 09:00)
DX: K64.4 Residual hemorrhoidal skin tags (principal); K64.8 Other hemorrhoids; K64.3 Fourth degree hemorrhoids; K59.00 Constipation, unspecified; F41.9 Anxiety disorder, unspecified; E78.5 Hyperlipidemia, unspecified; I10 Essential (primary) hypertension; J30.2 Other seasonal allergic rhinitis; H40.9 Unspecified glaucoma; M19.90 Unspecified osteoarthritis, unspecified site; R73.03 Prediabetes; E55.9 Vitamin D deficiency, unspecified; H04.129 Dry eye syndrome of unspecified lacrimal gland; Z86.16 Personal history of COVID-19; Z86.73 Personal history of transient ischemic attack (TIA), and cerebral infarction without residual deficits; Z83.3 Family history of diabetes mellitus; Z82.49 Family history of ischemic heart disease and other diseases of the circulatory system; Z82.61 Family history of arthritis; Z79.02 Long term (current) use of antithrombotics/antiplatelets; Z79.82 Long term (current) use of aspirin; Z79.899 Other long term (current) drug therapy
CPT/HCPCS: 46255; 88304; A9270; G0378; J0690; J1100; J1170; J1885; J2405; J2704; J3010; J7120

== ENCOUNTER 2023-06-19 10:32 | Outpatient (CLI) | payer MEDICARE, SELFPAY ==
[2023-06-19 19:27] LABS: Alanine Aminotransferase 26 U/L (6-35); Albumin Level 4.2 g/dL (3.5-5.1); Alkaline Phosphatase 79 U/L (38-126); Anion Gap 7 mmol/L (8-16); Aspartate Amino Transferase 32 U/L (14-36); Bilirubin,Total 0.4 mg/dL (0.2-1.3); Blood Urea Nitrogen 19 mg/dL (7-17); Calcium 9.1 mg/dL (8.4-10.2); Carbon Dioxide 29 mmol/L (22-30); Chloride 93 mmol/L (98-107); Estimated Glomerular Filt Rate > 60; Glucose 89 mg/dL (65-110); Potassium 3.8 mmol/L (3.4-5.0); Sodium 129 mmol/L (137-145)
[2023-06-19 19:51] LABS: Hemoglobin A1C 5.7 % (<5.7)
== END 2023-06-19 10:33 | disposition home or self-care (01) ==
PROVIDERS: PCP Family Medicine; Visit Provider Family Medicine
DX: R79.89 Other specified abnormal findings of blood chemistry (principal); I10 Essential (primary) hypertension; R73.03 Prediabetes
CPT/HCPCS: 36415; 80053; 83036; 84443

== ENCOUNTER 2024-02-20 14:11 | Emergency (ER) | payer MEDICARE, SELFPAY ==
--- NOTE | ~2024-02-20 | XR_ITS ---
EXAMINATION: XR humerus RT DATE: 02/20/2024 14:35 INDICATION: Mid diaphyseal right humeral pain when shaking a blanket TECHNIQUE: Internal and axillary rotated views of the right humerus were obtained. COMPARISON: None. FINDINGS: Bone alignment is normal. No fracture. Mild osteoarthritis at the right shoulder and elbow. Soft tissues are unremarkable./Portions of the right lung are clear. IMPRESSION: 1. Mild osteoarthritis at the right elbow and shoulder. No acute osseous abnormality. Reviewed, dictated and finalized at location B. IMPRESSION: 1. Mild osteoarthritis at the right elbow and shoulder. No acute osseous abnorm ality.
--- NOTE | 2024-02-20 14:24 | ED.UPPEXIN ---
HPI - Extremity Injury (Upper) General Chief Complaint: Extremity Injury, Upper Stated Complaint: R ARM PAIN Time Seen by Provider: 02/20/24 14:30 Source: patient, RN notes reviewed and old records reviewed Mode of arrival: ambulatory Limitations: no limitations History of Present Illness HPI narrative: 88 year old female accompanied by son presents to express care with complaints of shaking a blanket out today and experienced pain to the mid aspect of her right humerus states felt a ta in her arm.Patient arrives with her right arm in a sling stating it hurts worse when her right arm hangs down. No obvious redness to right humerus area with no bruising or swelling noted but with some palpable tenderness to mid aspect of right humerus region. MD complaint: injury to: right and arm Onset (ago): hour(s) (2 hours ago) Handedness: right Place: home Severity scale (1-10): 8 Treatments prior to arrival: NSAIDS Related Data Home Medications Medication Instructions Recorded Confirmed tafluprost (PF) 0.0015 % eye drops 1 drop LEFT EYE QAM 07/01/19 02/20/24 in a dropperette (Zioptan (PF)) multivitamin (Daily Multi-Vitamin 1 tablet PO DAILY 10/06/20 02/20/24 tablet) loratadine 10 mg tablet (Claritin) 10 mg PO DAILY 01/23/23 02/20/24 fluticasone propionate 50 1 spray intranasal HS PRN allergy 01/31/23 02/20/24 mcg/actuation nasal symptoms spray,suspension (Flonase Allergy Relief) E3/E2(50/50) 0.25%/Progesterone 5% 0.2 ml topical DAILY 06/19/23 02/20/24 cream docusate sodium 100 mg capsule 100 mg PO DAILY 06/19/23 02/20/24 ibuprofen 200 mg tablet 200 mg PO .PRN PRN Pain 06/19/23 02/20/24 sertraline 100 mg tablet 100 mg PO DAILY 02/20/24 02/20/24 Allergies Allergy/AdvReac Type Severity Reaction Status Date / Time epinephrine AdvReac Mild Itching Verified 02/20/24 14:19 Review of Systems Review of Systems: CONSTITUTIONAL: Denies fever, chills, or sweats. EYES: Denies visual changes, redness, or discharge. ENT: Denies rhinorrhea, congestion, sore throat, or otalgia. CARDIOVASCULAR: Denies chest pain, palpitations, or edema. RESPIRATORY: Denies cough or dyspnea. GASTROINTESTINAL: Denies abdominal pain, nausea, vomiting, or diarrhea. GENITOURINARY: Denies dysuria or hematuria. SKIN: Denies rash or itching. MUSCULOSKELETAL: Denies back pain, positive for right upper arm discomfort, or myalgia. NEUROLOGIC: Denies headache, numbness, or weakness. PSYCHIATRIC: Denies anxiety or depression. All systems reviewed & are unremarkable except as noted in HPI and below PMFSH Past Medical History Medical History Acne rosacea Anxiety Arthritis of left knee Dyslipidemia Environmental allergies Essential (primary) hypertension History of COVID-19 (~11/2021) History of TIA (transient ischemic attack) History of vaginal delivery 1956 1957 1959 1962 1965 History of varicose veins Open wound of left lower leg due to dog bite (~09/2020) Osteoarthritis Pes anserinus bursitis of left knee Postmenopausal hormone replacement therapy Prediabetes Skin problem Transient ischemic attack (TIA) 3 TIA's Trigger finger, unspecified middle finger Both left and right Vitamin D deficiency Surgical History Surgical History H/O hemorrhoidectomy 02/13/23 Proctosigmoidoscopy to 16 cm, excision left lateral complex internal and external hemorrhoids H/O ligation of vein 1966 History of cataract surgery Removal right & left eye - 2006 History of hand surgery Left Dr. De La Torre Resection Arthroplasty w/ Tendon graft suspension left 1st carpal/metacarpal joint 2004 History of hysterectomy & Bladder repair 1973 History of TIAs 12/2014 History of tonsillectomy 194 Hx of decompressive lumbar laminectomy 2009 Trigger thumb, left thumb Release 2004 Family History Family History (Reviewed 02/22/24 @ 08:07 by Kaley Dickson,
[2024-02-20 14:25] VITALS: BP 190/69; PULSE 71; RESP 16; TEMP 37; O2SAT 98
== END 2024-02-20 15:14 | disposition home or self-care (01) ==
PROVIDERS: Emergency Provider Registered Nurse; PCP Family Medicine
DX: M79.621 Pain in right upper arm (principal); M17.12 Unilateral primary osteoarthritis, left knee; E78.5 Hyperlipidemia, unspecified; I10 Essential (primary) hypertension; R73.03 Prediabetes; E55.9 Vitamin D deficiency, unspecified; F41.9 Anxiety disorder, unspecified; Z86.16 Personal history of COVID-19; Z86.73 Personal history of transient ischemic attack (TIA), and cerebral infarction without residual deficits
CPT/HCPCS: 73060; 99213; G0463

== ENCOUNTER 2024-03-11 08:04 | Outpatient (CLI) | payer MEDICARE, SELFPAY ==
[2024-03-11 19:00] LABS: Basophils Percent Auto 0.3 % (0.2-1.2); Eosinophils Absolute Auto 0.1 K/mm3 (0-0.3); Eosinophils Percent Auto 0.6 % (0-4.4); Hematocrit 38.3 % (37.0-47.0); Hemoglobin 13.1 g/dL (12.0-15.0); Immature Granulocyte Absolute 0.04 K/mm3 (0.00-0.031); Immature Granulocyte Percent A 0.4 % (0-0.5); Lymphocytes Absolute Auto 2.08 K/mm3 (0.9-3.2); Lymphocytes Percent Auto 22.2 % (18.3-44.2); Mean Corpuscular HGB Conc 34.2 g/dl (32-36); Mean Corpuscular Hemoglobin 30.5 pg (26-34); Mean Corpuscular Volume 89.3 fl (80-100); Mean Platelet Volume 10.2 fl (7.4-10.4); Monocytes Absolute Auto 0.9 K/mm3 (0.1-0.6); Neutrophils Absolute Auto 6.2 K/mm3 (1.3-6.7); Neutrophils Percent Auto 66.5 % (45.5-73.1); Platelet Count Result 216 k/mm3 (150-375); Red Blood Count 4.29 M/mm3 (4.2-5.4); Red Cell Distribution Width 14.2 % (11.5-14.5); White Blood Count 9.4 K/mm3 (4.5-10.0)
[2024-03-11 19:44] LABS: Alanine Aminotransferase 21 U/L (6-35); Albumin Level 4.3 g/dL (3.5-5.1); Alkaline Phosphatase 71 U/L (38-126); Anion Gap 10 mmol/L (4-12); Aspartate Amino Transferase 36 U/L (14-36); Bilirubin,Total 0.3 mg/dL (0.2-1.3); Blood Urea Nitrogen 13 mg/dL (7-17); Calcium 9.3 mg/dL (8.4-10.2); Carbon Dioxide 25 mmol/L (22-30); Chloride 92 mmol/L (98-107); Cholesterol 217 mg/dL (0-200); Estimated Glomerular Filt Rate > 60; Glucose 94 mg/dL (65-110); HDL Direct 106 mg/dL; Potassium 4.1 mmol/L (3.4-5.0); Sodium 127 mmol/L (137-145); Triglycerides 146 mg/dL (<150)
[2024-03-11 19:55] LABS: LDL Cholesterol Direct 75 mg/dL
[2024-03-11 20:37] LABS: Hemoglobin A1C 5.9 % (<5.7)
[2024-03-11 21:36] LABS: Vitamin D 25 Hydroxy 26.7 ng/mL
== END 2024-03-11 08:05 | disposition home or self-care (01) ==
LOC: ANHGOSHLAB 08:06
PROVIDERS: PCP Family Medicine; Visit Provider Family Medicine
DX: E78.5 Hyperlipidemia, unspecified (principal); I10 Essential (primary) hypertension; R79.89 Other specified abnormal findings of blood chemistry; R73.03 Prediabetes; E53.8 Deficiency of other specified B group vitamins; E55.9 Vitamin D deficiency, unspecified; Z86.73 Personal history of transient ischemic attack (TIA), and cerebral infarction without residual deficits
CPT/HCPCS: 36415; 80053; 80061; 82306; 82607; 83036; 84443; 85025

== ENCOUNTER 2024-05-05 09:05 | Outpatient (CLI) | payer MEDICARE, SELFPAY ==
--- NOTE | ~2024-05-05 | XR_ITS ---
EXAMINATION: XR chest 2V 05/05/2024 09:15 INDICATION: Hypoosmolality abnormality PROCEDURE: Two-view chest COMPARISON: 12/29/2008 FINDINGS: The lungs are clear. The cardiomediastinal silhouette is within normal limits. There are no pleural effusions. There is no pneumothorax suspected. There is atherosclerosis of the aorta. Th ere is moderate thoracic spondylosis with levoscoliosis. IMPRESSION: 1: NO ACUTE CARDIOPULMONARY DISEASE. Reviewed, dictated and finalized at location B. TECH
== END 2024-05-05 09:06 | disposition home or self-care (01) ==
LOC: GOSHIMG 09:06
PROVIDERS: PCP Family Medicine; Visit Provider Internal Medicine Nephrology
DX: E87.1 Hypo-osmolality and hyponatremia (principal)
CPT/HCPCS: 71046

== ENCOUNTER 2024-05-06 08:00 | Outpatient (CLI) | payer MEDICARE, SELFPAY ==
[2024-05-06 21:17] LABS: Cortisol Random 8.51 ug/dL
[2024-05-06 23:09] LABS: Sodium Urine Random 137 meq/L
[2024-05-07 06:18] LABS: Protein, Total 6.3 g/dL (6.1-8.1)
[2024-05-08 13:43] LABS: Albumin 4.1 g/dL (3.8-4.8); Alpha 1 Globulin 0.3 g/dL (0.2-0.3); Alpha 2 Globulin 0.7 g/dL (0.5-0.9); Beta 1 Globulin 0.4 g/dL (0.4-0.6); Gamma Globulin 0.6 g/dL (0.8-1.7)
[2024-05-10 18:59] LABS: Immunofixation, Serum Normal pattern.
[2024-05-11 15:08] LABS: Osmolality, Urine 399 mOsm/kg (50-1200)
== END 2024-05-06 08:01 | disposition home or self-care (01) ==
LOC: ANHGOSHLAB 08:01
PROVIDERS: PCP Family Medicine; Visit Provider Internal Medicine Nephrology
DX: E87.1 Hypo-osmolality and hyponatremia (principal)
CPT/HCPCS: 36415; 82533; 83930; 83935; 84155; 84165; 84300; 86334

== ENCOUNTER 2024-05-20 07:28 | Outpatient (CLI) | payer MEDICARE, SELFPAY ==
[2024-05-20 08:44] LABS: Anion Gap 4 mmol/L (4-12); Blood Urea Nitrogen 17 mg/dL (7-17); Calcium 9.5 mg/dL (8.4-10.2); Carbon Dioxide 29 mmol/L (22-30); Chloride 99 mmol/L (98-107); Estimated Glomerular Filt Rate > 60; Glucose 100 mg/dL (65-110); Potassium 4.1 mmol/L (3.4-5.0); Sodium 132 mmol/L (137-145)
== END 2024-05-20 07:29 | disposition home or self-care (01) ==
PROVIDERS: PCP Family Medicine; Visit Provider Internal Medicine Nephrology
DX: E87.1 Hypo-osmolality and hyponatremia (principal); R79.89 Other specified abnormal findings of blood chemistry
CPT/HCPCS: 36415; 80048; 82533; 96372

== ENCOUNTER 2024-08-05 09:18 | Emergency (ER) | payer MEDICARE, SELFPAY ==
--- NOTE | 2024-08-05 09:23 | ED_ITS ---
HPI - Skin/Abscess/Foreign Bdy General Chief complaint: Skin/Abscess/Foreign Body Stated complaint: Cut Hand Time Seen by Provider: 08/05/24 09:56 Source: patient and RN notes reviewed Mode of arrival: ambulatory Limitations: no limitations History of Present Illness HPI narrative: 88-year-old female presents with concern for skin tears to the right hand. Reports today she started to trip and when she caught herself on a cabinet she cut her hand. She washed it with alcohol time. She denies any decreased strength, sensation, range of motion in his the hand or digit. MD complaint: other (laceration) Related Data Home Medications ?Medication ?Instructions ?Recorded ?Confirmed ?Last Taken ?Type tafluprost (PF) 0.0015 % eye drops 1 drop LEFT EYE QAM 07/01/19 04/27/24 02/13/23 05:15 History in a dropperette (Zioptan (PF)) multivitamin (Daily Multi-Vitamin 1 tablet PO DAILY 10/06/20 04/27/24 02/10/23 History tablet) loratadine 10 mg tablet (Claritin) 10 mg PO DAILY 01/23/23 04/27/24 02/12/23 History fluticasone propionate 50 1 spray intranasal HS PRN allergy 01/31/23 04/27/24 02/11/23 History mcg/actuation nasal symptoms spray,suspension (Flonase Allergy Relief) E3/E2(50/50) 0.25%/Progesterone 5% 0.2 ml topical DAILY 06/19/23 04/27/24 Unknown History cream docusate sodium 100 mg capsule 100 mg PO DAILY 06/19/23 04/27/24 Unknown History ibuprofen 200 mg tablet 200 mg PO .PRN PRN Pain 06/19/23 04/27/24 Unknown History sertraline 100 mg tablet 100 mg PO DAILY 02/20/24 04/27/24 Unknown History doxycycline hyclate 50 mg capsule 50 mg PO DAILY 03/03/24 04/27/24 Unknown History multivitamin (Daily Multi-Vitamin 1 tablet PO DAILY 03/31/24 04/27/24 Unknown History tablet) Allergies Allergy/AdvReac Type Severity Reaction Status Date / Time lidocaine Allergy Unknown Verified 08/05/24 09:58 epinephrine AdvReac Mild Itching Verified 08/05/24 09:58 Review of Systems Review of Systems: CONSTITUTIONAL: Denies malaise, chills, sweats, or fever. SKIN: Reports to skin tears to the dorsal aspect of the right hand MUSCULOSKELETAL: Denies muscle skeletal pain NEUROLOGIC: Denies numbness, weakness All systems reviewed & are unremarkable except as noted in HPI and below PMFSH Past Medical History Medical History Acne rosacea Anxiety Arthritis of left knee Dyslipidemia Environmental allergies Essential (primary) hypertension History of COVID-19 (~11/2021) History of TIA (transient ischemic attack) (~12/2014) History of vaginal delivery 1956 1957 1959 1962 1965 History of varicose veins Open wound of left lower leg due to dog bite (~09/2020) Osteoarthritis Pes anserinus bursitis of left knee Postmenopausal hormone replacement therapy Prediabetes Skin problem Transient ischemic attack (TIA) 3 TIA's Trigger finger, unspecified middle finger Both left and right Vitamin D deficiency Surgical History Surgical History H/O hemorrhoidectomy 02/13/23 Proctosigmoidoscopy to 16 cm, excision left lateral complex internal and external hemorrhoids H/O ligation of vein 1966 History of cataract surgery Removal right & left eye - 2006 History of hand surgery Left Dr. De La Torre Resection Arthroplasty w/ Tendon graft suspension left 1st carpal/metacarpal joint 2004 History of hysterectomy & Bladder repair 1973 History of TIAs 12/2014 History of tonsillectomy 1941 Hx of decompressive lumbar laminectomy 2009 Trigger thumb, left thumb Release 2004 Family History Family History Mother Diabetes mellitus Hypertension Cancer Father Arthritis Heart disease Social History Social History (Updated 03/31/24 @ 10:51 by Selena Ruiz CMA) Years smoked: 1 Smoking status: Never smoker Alcohol intake: former Drinks per week: 14 Alcohol use details: Quit 04-18-2019 Substance use: never Substance use type: does not use Do You Feel Safe in your Home?: Yes Lack of Transportation: No Lack of Food: Never True Current Housing: I Have Housing Concerned About Future Housing: No Difficulty Paying Gas/Electric Bills: No Difficulty Paying for Meds: No Currently Unemployed: No Education: Master's Degree or Higher Difficulty w/ Childcare or Family Care: No Living arrangements: alone Occupation/Education: retired Gender identity (if verbalized by the patient): Female Sexual Orientation (if Verbalized by the Patient): Straight or Heterosexual Spiritual care concerns: No Comments At time of signature, agree with nursing past medical, surgical, social and family history. There is no relevant family history pertinent to the presenting complaint Exam Narrative: GENERAL: Well-appearing, well-nourished, and in no acute distress. HEAD: Normocephalic EYES: PERRLA, conjunctivae clear NECK: Supple. CHEST: Speaks in full sentences. No respiratory distress. HEART: Regular rate and rhythm. Normal and equal peripheral pulses. EXTREMITIES: Right and digits have normal strength and sensation. 5/5 strength with digit flexion, extension. Range of motion normal. No clubbing, cyanosis, or edema noted. Normal thumb opposition. Good capillary refill and radial pulse. Distal capillary refill less than 3 seconds. SKIN: Warn, dry, intact, pink. To skin tears through the dermis noted to the dorsal right hand, the 1st 1 is approximately 0.5 cm and the 2nd 1 is. NEURO: Alert and oriented x3. PSYCH: Normal mood and affect Course Course Emergency Course: Wound was not cleaned again because patient clean it at home, the skin is delicate and was not currently bleeding, did not want to promote any more b leeding. Patient is aware of diagnosis, understands and agrees to treatment plan. Anticipatory guidance given. Patient agrees to follow-up as directed and is aware of reasons to seek care at the emergency department. Portions of this record may have been created with voice recognition software Level of Care: Express Care Visit Vital Signs Vital signs: Vital Signs Temperature 98.6 F 08/05/24 09:30 Pulse Rate 69 08/05/24 09:30 Respiratory Rate 18 08/05/24 09:30 Blood Pressure 173/86 H 08/05/24 09:30 Pulse Oximetry 100 08/05/24 09:30 Temperature 98.6 F 08/05/24 09:30 Pulse Rate 69 08/05/24 09:30 Respiratory Rate 18 08/05/24 09:30 Blood Pressure 173/86 H 08/05/24 09:30 Pulse Oximetry 100 08/05/24 09:30 Reviewed. Procedures Laceration Laceration 1: Date: 08/05/24 Time: 10:11 Site: hand Side (If applicable): right Size (cm): 1.5 Description: flap Depth: simple, single layer ====== Skin Level ====== Skin layer closed with: steri strips ====== Subcutaneous Layer ====== ====== Muscle Layer ====== ====== Tendon Layer ====== Laceration 2: Date: 08/05/24 Time: 10:12 Side (If applicable): right Size (cm): 1 Description: flap Depth: simple, single layer ====== Skin Level ====== Skin layer closed with: steri strips ====== Subcutaneous Layer ====== ====== Muscle Layer ====== ====== Tendon Layer ====== Critical Care Time Critical Care Time Critical Care Time: No Discharge Plan Discharge Clinical Impression: Skin tear Patient Disposition: Home, Self-Care Condition: Stable Instructions: Skin Tear (ED) Additional Instructions: Keep wound clean, and dry. Clean with soap and water, but do not soak, take baths, or soak it until wound is completely healed. Do not clean with hydrogen peroxide. If any signs of infection such as redness, swelling, increasing pain, drainage o f purulent discharge, streaks up your extremity develop, seek medical attention immediately. When the Steri-Strips are ready to be removed, soak them off, do not pull them off is you might reopen the wound. Patient Language: Croatian Prescriptions: No Action sertraline 100 mg Tablet 100 mg PO DAILY Zioptan (PF) 0.0015 % dropperette 1 drop EACH EYE QAM docusate sodium 100 mg capsule 100 mg PO DAILY ibuprofen 200 mg tablet 200 mg PO .PRN PRN (Reason: Pain) E3/E2(50/50) 0.25%/Progesterone 5% cream 0.2 ml topical DAILY doxycycline hyclate 50 mg capsule 50 mg PO DAILY multivitamin [Daily Multi-Vitamin] Tablet 1 tablet PO DAILY multivitamin [Daily Multi-Vitamin] Tablet 1 tablet PO DAILY loratadine [Claritin] 10 mg tablet 10 mg PO DAILY fluticasone propionate [Flonase Allergy Relief] 50 mcg/actuation spray,suspension 1 spray intranasal HS PRN (Reason: allergy symptoms) Rx Instructions: administer into each nostril Metamucil 3.4 gram/5.4 gram powder 1 tbsp PO BID Qty: 660 0RF Rx Instructions: mix into at least 8 oz of water or juice before administering lorazepam 0.5 mg tablet 0.5 mg PO BID PRN (Reason: anxiety) Qty: 60 1RF metoprolol succinate 25 mg tablet extended release 24 hr 25 mg PO QAM Qty: 90 1RF amlodipine 10 mg tablet 10 mg PO DAILY Qty: 90 1RF losartan 100 mg tablet 100 mg PO QAM Qty: 90 1RF cholecalciferol (vitamin D3) 1,250 mcg (50,000 unit) tablet 1,250 mcg PO WEEKLY Qty: 12 1RF aspirin 325 mg tablet,delayed release (DR/EC) 325 mg PO HS Qty: 90 1RF sodium chloride 1,000 mg tablet,soluble 1,000 mg PO DAILY Qty: 90 1RF atorvastatin [Lipitor] 20 mg tablet 20 mg PO QHS Qty: 90 1RF Follow-up/Referrals: Cata Trujillo MD [Primary Care Provider] - Time of Disposition: 10:14
[2024-08-05 09:30] VITALS: BP 173/86; PULSE 69; RESP 18; TEMP 37; O2SAT 100
== END 2024-08-05 10:15 | disposition home or self-care (01) ==
PROVIDERS: Emergency Provider Nurse Practitioner; PCP Family Medicine
DX: S61.411A Laceration without foreign body of right hand, initial encounter (principal); W22.09XA Striking against other stationary object, initial encounter; E78.5 Hyperlipidemia, unspecified; I10 Essential (primary) hypertension; R73.03 Prediabetes; Z86.73 Personal history of transient ischemic attack (TIA), and cerebral infarction without residual deficits; F41.9 Anxiety disorder, unspecified; M17.12 Unilateral primary osteoarthritis, left knee
CPT/HCPCS: 99212; G0463